=== PATIENT | male | born 1980 | race Two or more races ===

== ENCOUNTER 2019-01-07 18:10 | Emergency (ER) | payer MEDICAID ==
[~2019-01-07] VITALS: Ht 167.6 cm; Wt 83.9 kg
[2019-01-07 18:20] VITALS: BP 139/93
[2019-01-07] MEDS: KETOROLAC TROMETH 60MG/2ML VIAL IM ONE (19:35)
== END 2019-01-07 20:33 | disposition home or self-care (01) ==
LOC: ER 18:20 → EDBD 18:20 → ER 20:33
DX: S23.3XXA Sprain of ligaments of thoracic spine, initial encounter (principal); M62.830 Muscle spasm of back; X58.XXXA Exposure to other specified factors, initial encounter; Y93.89 Activity, other specified; Y92.89 Other specified places as the place of occurrence of the external cause; Y99.8 Other external cause status
CPT/HCPCS: 71046; 96372; 99283; J1885